=== PATIENT | female | born 1940 | race Caucasian/White ===

== ENCOUNTER 2023-06-26 20:43 | Emergency (ER) | payer OTHER, SELFPAY ==
[2023-06-26 20:50] VITALS: BP 137/40
[2023-06-26 21:41] VITALS: BP 157/36
[2023-06-26 22:00] VITALS: BP 159/42
--- NOTE | 2023-06-26 22:35 | ED.GENMED ---
History of Present Illness
General
Chief Complaint: Blood Pressure Problem
Source: patient
Exam Limitations: none
Time Seen by Provider: 06/26/23 21:49
Travel History
Have you had any contact with someone who has COVID-19?: No
Do you have any symptoms of coronavirus? Fever > 100 degrees, chills, cough, shortness of breath, sore throat, loss of taste or smell, muscle aches, or headache?: No
History of Present Illness
History of Present Illness:
This is a 82 year old female that comes in with multiple complaints. States that she has been at [facility] 2 times in the past 2 weeks. Son states that his mom c/o brain fog for the past week or more. Sates that she has pain behind the right eye and
the right sided of the face. States that her BP has been up and down and was 88/something today. States that her BP has been up and down since she started on Dialysis. States that she took Midodrine before coming to the [facility]. States that she
does peritoneal dialysis and is due to have Hemodialysis tomorrow. States that she was put on Gabapentin 2 weeks ago and son states that he stopped this but it appeared that she has take 5 tablets since she was prescribed this medication. States
that she also awoke with her arms jerking. States that she also feels like there is carbonation and the bubbles are going through her brain. States that she is SOB with walking and can only walk about 20 feet with her walker. States that she did
have diarrhea once last night. Denies any fever, chills, chest pain, abd pain, nausea, vomiting. Patient does not urinate.
Past History
Past History
ED Past Medical History: CAD, CHF, HTN, Hypercholesterolemia, NIDDM, [place] and Other (Diabetic Neuropathy, Chronic lymphedema bilateral legs and right arm, UTI, Back pain, Spinal stenosis, Aortic stenosis, GI bleeding)
ED Past Surgical History: Appendectomy, Cardiac (Stents X 2, TAVR), Gynecological (Hysterectomy) and Tonsilectomy
Social History
Tobacco: Former smoker
Alcohol: None
Personal:
Living: alone
Review of Systems
Review of Systems
All Other Systems: ROS reviewed and negative except as documented in HPI and ROS
Constitutional: Reports no symptoms; Denies fever or chills
EENT: Reports no symptoms
Respiratory: Reports trouble breathing
Cardiac: Denies chest pain
ABD/GI: Reports diarrhea (Once last night); Denies abdominal pain, nausea or vomiting
: Reports no symptoms
Musculoskeletal: Reports other (Arms were jerking when she woke up)
Skin: Reports no symptoms
Neurological: Reports headache and other (Feels like carbonation bubbles going through her brain); Denies dizzy
Psychiatric: Reports no symptoms
Phy Exam
General Physical Exam
General Presentation: no apparent distress
General age: appears stated age
General Skin: warm and dry
General Habitus: elderly
General Mental: alert
General Hydration: appears well hydrated
ENT Exam
ENT Exam: TM's normal, pharynx normal and neck supple
Eye Exam
Eye Exam: EOMI
Cardiovascular Exam
Cardiovascular Exam: regular rate/rhythm and normal peripheral pulses
Pulmonary Exam
Pulmonary Exam: lungs clear, no respiratory distress, no rales, chest non tender, no crackles, no rhonchi, no wheezing and no cough
Gastrointestinal Exam
Gastrointestinal Exam: normal bowel sounds, soft, no organomegaly, no pulsatile mass, non distended, tender (Left sided abd tenderness with palpation only) and other (Obese)
Musculoskeletal Exam
Musculoskeletal Exam: full ROM and edema (Chronic lymph edema lower legs. Slightly pitting and right arm)
Skin Exam
Skin Exam: normal color, warm/dry, no rash and no petechia
Psychiatric Exam
Psychiatric Exam: normal mood/affect
Course
Orders/Labs/Results
Orders:
Orders
06/26/23 22:41
Ammonia Urgent
Complete Blood Count/With Diff Urgent
Comprehensive Metabolic Panel Urgent
Lipase Urgent
06/26/23 22:45
Electrocardiogram (*1) Urgent
Reason for Study: Shortness of Breath
EKG- Treatment ONCE
06/26/23 22:58
COVID-19 Antigen Urgent
Source: Nasal Swab
Abnormal Lab Results
06/26/23
22:41
RBC 3.29 L 10^6/uL
(4.20-5.40)
Hgb 10.3 L g/dL
(12.0-16.0)
Hct 30.0 L %
(37.0-47.0)
MCH 31.3 H pg
(27.0-31.0)
RDW 17.3 H %
(11.5-14.5)
Abs Immat Gran (auto) 0.1 H 10^3/uL
(0-0.05)
Absolute Neuts (auto) 8.1 H 10^3/uL
(1.4-6.5)
Absolute Monos (auto) 1.0 H 10^3/uL
(0.1-0.6)
Immature Gran % 0.6 H %
(0-0.5)
Lymphocytes % 10.6 L %
(20.5-51.1)
Sodium 133 L mmol/L
(135-145)
Potassium 3.4 L mmol/L
(3.5-5.1)
Chloride 95 L mmol/L
(98-107)
BUN 77 H mg/dl
(7-17)
Creatinine 9.8 H* mg/dL
(0.6-1.0)
Glucose 116 H mg/dl
(70-99)
Ammonia < 9 L umol/L
(9-30)
Total Protein 6.0 L g/dl
(6.3-8.2)
Albumin 3.1 L g/dl
(3.5-5.0)
Lipase 605 H U/L
(23-300)
06/26/23 22:41
06/26/23 22:41
H/H slightly low Sodium slightly low. potassium very slightly low. Chronic renal failure with worsening BUN and Cr, Ammonia <9, Total protein slightly low. Albumin slightly low. Lipase elevation possible early Pancreatitis.
Vital Signs
Initial and Last Documented VS:
Initial Vital Signs
Temp Pulse Resp BP Pulse Ox
98.7 F 67 18 137/40 99
06/26/23 20:50 06/26/23 20:50 06/26/23 20:50 06/26/23 20:50 06/26/23 20:50
Last Documented Vital Signs
Temp Pulse Resp BP Pulse Ox
98.7 F 68 16 134/56 99
06/26/23 20:50 06/27/23 00:15 06/27/23 00:15 06/27/23 00:00 06/27/23 00:00
MDM/Problems Addressed
Differential Diagnosis Includes:
COVID, CVA, change in mental status, Dementia
MDM/Problems Addressed:
This is a 82 year old female that comes in with multiple complaints. States that she has been at [facility] 2 times in the past 2 weeks for the same complaints.
Will check labs. Attempted to get CT reports from [facility].
Continue to wait for CT reports from [facility]. However patient described the Second CT as taking much longer then the first. Feel that this was most likely a CTA of the head. Explained to patient that her WBC are normal. Her blood work shows her
chronic kidney disease. Patient is negative for COVID and her ammonia level is normal. Explained that her Lipase is slightly elevated but patient has not c/o abd pain, nausea, or vomiting. Explained to patient that she will need to follow up with
the family doctor. Could this be the starting of Dementia is very possible. Questioned patient if she felt safe going home as she lives by herself and she states that she is safe. Will discharge home.
Chronic conditions affecting care: DM and Kidney disease
Acute Exacerbation and/or Progression of Chronic Illness: DM and Kidney disease
*Pulse Oximetry
Patient hypoxic: no
*EKG
Interpreted by ED Provider?: Yes
Heart Rate: 68
Rate: normal
Rhythm: sinus
[place]: normal axis
Interval: first degree heart block and long QT
QRS Pattern: normal QRS
Ischemia: non-specific ST changes (II, V3, V4, V5, V6, )
*Molten [employer] Pou[employer] Interpretation
Rate: normal
Heart Rate: 68
Rhythm: sinus
*Critical Care Note
Total Time (30-74mins, 75-104mins- exclusive of procedures): Not Applicable
ED Attending Note
-
Portions of this chart may have been created with voice recognition software.� Occasional wrong word or��sound alike� substitutions may have occurred due to the inherent limitations of voice recognition software.
Discharge Plan
Departure
Patient Disposition: Home (Routine Discharge)
Date of Disposition: 06/27/23
Time of Disposition: 00:20
Patient with high blood pressure during this ER visit?: Yes
Condition: Good
Covid-19: Negative COVID-19
Discharge Problem:
Brain fog
Instructions: Dementia ED, BLOOD PRESSURE
Prescriptions:
No Action
clopidogrel 75 MG tablet
75 mg PO DAILY
nitroglycerin 0.4 MG tablet, sublingual
0.4 mg sublingual [id number] PRN (Reason: chest pain)
acetaminophen 325 MG tablet
650 mg PO Q4HPRN PRN (Reason: mild pain) 0RF
pantoprazole 40 MG tablet,delayed release (DR/EC)
40 mg PO DAILY 0RF
cholecalciferol (vitamin D3) [Vitamin D3] 50 mcg (2,000 unit) Capsule
50 mcg PO HS
atorvastatin 40 MG tablet
40 mg PO HS
docusate sodium 100 mg capsule
200 mg PO BID
isosorbide mononitrate 30 mg Tablet Extended Release 24 Hr
30 mg PO DAILY
allopurinol 100 mg Tablet
100 mg PO DAILY
sodium polystyrene sulfonate 15 gram/60 mL Suspension
60 ml PO .AD PRN PRN (Reason: missed dialysis days)
metoprolol succinate 25 mg Tablet Extended Release 24 Hr
25 mg PO HS
oxymetazoline 0.05 % [place],Non-Aerosol
1 spray INTRANASAL HSPRN PRN (Reason: allergies)
sevelamer carbonate 800 mg Tablet
800 mg PO QID
apixaban 2.5 mg Tablet
2.5 mg PO BID
white petrolatum [Hydrophor] 42 % Ointment
1 applic topical DAILY Qty: 0 0RF
polyethylene glycol 3350 [HealthyLax] 17 gram Powder In Packet
17 g PO DAILY Qty: 0 0RF
sennosides [Senna Lax] 8.6 mg Tablet
8.6 mg PO BID Qty: 0 0RF
hydrocodone-acetaminophen 5-325 mg Tablet
1 tab PO Q4HPRN PRN (Reason: moderate to severe pain) Qty: 10 0RF
Referrals:
Omar Mcdowell DO [Family Provider] - Follow up in 2-3 days
Activity Restrictions/Additional Instructions:
As discussed, your blood work shows your chronic renal failure. Your Lipase is slightly elevated but you have no signs of Pancreatitis as you are not vomiting and don't have abd pain. Your Ammonia level is normal and you are negative for COVID. This
may be the starting of Dementia. Please follow up with the family doctor. Please make arrangements to have your Dialysis tomorrow. IF YOU HAVE ANY OTHER CONCERNS PLEASE RETURN TO THE EMERGENCY ROOM.
Interventions
Interventions:
*Risk Screen - Suicide Last Done: 06/26/23 20:50
*General Assessment Last Done: 06/26/23 20:50
*Neglect/Abuse Screening Last Done: 06/26/23 20:50
ED- Fall Risk Assessment Last Done: 06/27/23 00:41
*Nursing Disposition Last Done: 06/27/23 00:41
ED- Cardiac Assessment Last Done: 06/26/23 21:47
ED- Neurological Assessment Last Done: 06/26/23 21:47
ED- Pulmonary Assessment Last Done: 06/26/23 21:47
Discharge Date and Time
Print Language: ANGOLAN
[2023-06-26 22:54] LABS: % Basophils 0.6 % (0-2); % Eosinophils 4.7 % (0-6); % Immature Granulocytes 0.6 % (0-0.5); % Lymphocytes 10.6 % (20.5-51.1); % Monocytes 8.8 % (1.7-9.3); % Neutrophils 74.7 % (42.2-75.2); Absolute Basophils 0.1 10^3/uL (0-0.2); Absolute Eosinophils 0.5 10^3/uL (0-0.7); Absolute Immature Granulocytes 0.1 10^3/uL (0-0.05); Absolute Lymphocytes 1.2 10^3/uL (1.2-3.4); Absolute Neutrophils 8.1 10^3/uL (1.4-6.5); Hemoglobin 10.3 g/dL (12.0-16.0); Mean Corp Hgb Conc. 34.3 g/dL (33.0-37.0); Mean Corpuscular Hgb 31.3 pg (27.0-31.0); Mean Corpuscular Volume 91.2 fL (81.0-99.0); Nucleated Red Blood Cells % 0 %; Platelet Count 198 10^3/uL (130-400); Red Blood Cell Count 3.29 10^6/uL (4.20-5.40); Red Cell Dist. Width 17.3 % (11.5-14.5); White Blood Cell Count 10.8 10^3/uL (4.8-10.8)
[2023-06-26 23:00] VITALS: BP 133/36
[2023-06-26 23:03] LABS: Ammonia < 9 umol/L (9-30)
[2023-06-26 23:18] LABS: ALT (SGPT) 11 U/L (0-35); AST (SGOT) 17 U/L (14-36); Albumin 3.1 g/dl (3.5-5.0); Alkaline Phosphatase 98 U/L (38-126); Blood Urea Nitrogen 77 mg/dl (7-17); Calcium 9.1 mg/dl (8.4-10.2); Carbon Dioxide 25 mmol/L (22-30); Chloride 95 mmol/L (98-107); Glucose 116 mg/dl (70-99); Lipase 605 U/L (23-300); Potassium 3.4 mmol/L (3.5-5.1); Sodium 133 mmol/L (135-145); Total Bilirubin 0.4 mg/dl (0.2-1.3); eGFR 3.68
[2023-06-26 23:19] LABS: COVID-19 Antigen Negative (Negative)
[2023-06-27] VITALS: BP 134/56
[2023-06-27 00:41] VITALS: BP 134/56
== END 2023-06-27 00:44 | disposition home or self-care (01) ==
LOC: EMR 20:43
PROVIDERS: Clinical Nurse Specialist Family Health; EMERGENCY PHYSICIAN Emergency Medicine; FAMILY PHYSICIAN Family Medicine
DX: R41.9 Unspecified symptoms and signs involving cognitive functions and awareness (principal); R06.02 Shortness of breath; R19.7 Diarrhea, unspecified; R74.8 Abnormal levels of other serum enzymes; E11.22 Type 2 diabetes mellitus with diabetic chronic kidney disease; I13.2 Hypertensive heart and chronic kidney disease with heart failure and with stage 5 chronic kidney disease, or end stage renal disease; N18.6 End stage renal disease; Z11.52 Encounter for screening for COVID-19; Z87.891 Personal history of nicotine dependence
CPT/HCPCS: 99284; 80053; 82140; 83690; 85025; 87811; 93005